=== PATIENT | male | born 1990 | race Caucasian/White ===

== ENCOUNTER 2016-11-21 09:19 | Emergency (ER) | payer BC, OTHER ==
[~2016-11-21] VITALS: Ht 180.3 cm; Wt 77.7 kg
[~2016-11-21 09:19] MED LIST: AMX500 PO; MULTTAB5 PO
[2016-11-21 09:38] VITALS: TEMP 37; Ht 180.3 cm; Wt 77.7 kg
[2016-11-21] MEDS ORDERED: OPTIRAY 320 IV PRN (10:30)
[2016-11-21 10:51] LABS: BASO % 0.7 %; BASO ABS # 0.03 K/uL (0-0.2); COMPLETE YES; EOS % 1.4 %; HEMATOCRIT 47.7 % (42-52); IG% 0.2 %; LYMPH ABS # 1.96 K/uL (1.2-3.4); MEAN CELL VOLUME 86.6 fL (80-100); MEAN CORPUSCULAR HGB CONC 33.5 g/dl (32-36); MEAN PLATELET VOLUME 9.5 fL (7.4-10.4); MONO % 6.7 %; PLATELET COUNT 252 K/uL (130-400); RED BLOOD COUNT 5.51 M/uL (4.7-6.1); WHITE BLOOD COUNT 4.36 K/uL (4.8-10.8)
[2016-11-21 11:15] LABS: ALT/SGPT 42 U/L (12-78); BLOOD UREA NITROGEN 10 mg/dl (7-18); BUN/CREATININE RATIO 11.5 (10-20); CALCIUM 9.3 mg/dl (8.5-10.1); CARBON DIOXIDE 30 mmol/L (21-32); CHLORIDE 104 mmol/L (98-107); CREATININE 0.84 mg/dl (0.60-1.40); GLUCOSE 92 mg/dl (70-99); POTASSIUM 3.7 mmol/L (3.5-5.1); SODIUM 141 mmol/L (136-145)
[2016-11-21 11:18] LABS: ALKALINE PHOSPHATASE 87 U/L (45-117); AST/SGOT 28 U/L (15-37)
[2016-11-21 11:53] LABS: URINE APPEARANCE CLEAR (CLEAR); URINE BILIRUBIN NEG (NEG); URINE COLOR YELLOW; URINE EPITHELIAL CELL AUTO 0-5 /lpf (0-5); URINE NITRITE NEG (NEG); UROBILINOGEN NEG (NEG); ZZUR CULT IF INDIC CLEAN CATCH NO
[2016-11-21 11:54] LABS: MANUAL MICROSCOPIC REQUIRED? NO; REVIEW REQ? NO
--- NOTE | 2016-11-21 12:06 | DIAGNOSTIC IMAGING REPORT ---
CT OF THE ABDOMEN AND PELVIS WITH CONTRAST CLINICAL HISTORY: Epigastric/periumbilical pain. COMPARISON STUDY: None. TECHNIQUE: Following IV administration of 119 mL of Optiray-320, axial images of the abdomen and pelvis were obtained from the lung bases to the proximal femurs. Images were reviewed in the axial, sagittal, and coronal planes. IV contrast was administered without complication. CT DOSE: 567.71 mGycm FINDINGS: Lung bases are clear. The liver, spleen, adrenal glands, kidneys and pancreas are unremarkable. There is no peripancreatic or pericholecystic infiltration. There is no hydronephrosis. No biliary or pancreatic ductal dilatation is present. The caliber and wall thickness of small and large bowel are normal. The appendix is normal. There is no free fluid. There is no abscess or lymphadenopathy. There is a small fat-containing umbilical hernia. IMPRESSION: 1. No acute process within the abdomen or pelvis. Normal appendix. 2. Small fat-containing umbilical hernia. Electronically signed by: Jatinder Kumari M.D. 11/21/2016 12:04 PM Dictated Date/Time: 11/21/2016 11:54 AM
[2016-11-21 13:12] VITALS: BP 124/70; PULSE 71; O2SAT 99
--- NOTE | 2016-11-21 17:10 | EMERGENCY ROOM VISIT NOTE ---
History Report prepared by Santoibkamari: Reji Helm Under the Supervision of: Dr. Matteo Simental D.O. 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 pt denies any pain at this time. History of Present Illness The patient is a 26 year old male who presents to the Emergency Room with complaints of a persistently enlarged belly button that started last night. The patient has had mild abdominal discomfort for several days. He denies any discomfort or swelling of the groin or testicles. The patient notes that he has been doing heavy lifting at his job. The patient has never had a problems like this before. His last bowel movement was yesterday. The patient would like to role out hernia or infection. Patient denies headache, change in vision, fevers , chest pain, shortness of breath, nausea, vomiting, diarrhea, pain with urination, and melena. Source of History: patient Onset: last night Position: other (belly button) Quality: other (enlarged) Timing: other (persistent) Associated Symptoms: + abdominal pain, No SOB, No chest pain, No diarrhea, No fevers, No headache, No melena, No nausea, No urinary symptoms, No vomiting Review of Systems See HPI for pertinent positives & negatives. A total of 10 systems reviewed and were otherwise negative. Past Medical & Surgical Medical Problems: (1) Acute bronchitis (2) Anxiety State Nos (3) Asthma (4) Contact dermatitis (5) Paranoid State Nos (6) Pharyngitis (7) URI (upper respiratory infection) Family History Diabetes mellitus FATHER FH: aneurysm FATHER Social History Smoking Status: Never Smoker Alcohol Use: occasionally Marital Status: single Housing Status: unknown Occupation Status: employed Current/Historical Medications No Active Prescriptions or Reported Meds Allergies Coded Allergies: No Known Allergies (Verified , 11/21/16) Physical Exam Vital Signs Date Time Temp Pulse Resp B/P Pulse Ox O2 Delivery O2 Flow Rate FiO2 11/21/16 13:12 71 16 124/70 99 11/21/16 12:28 69 18 125/72 97 Room Air 11/21/16 09:38 37.0 95 18 121/77 99 Room Air Physical Exam GENERAL: Sitting up in bed, alert, well appearing, well nourished, no distress, non-toxic EYE EXAM: normal conjunctiva. OROPHARYNX: no exudate, no erythema, lips, buccal mucosa, and tongue normal and mucous membranes are moist NECK: supple, no nuchal rigidity, no adenopathy, non-tender LUNGS: Clear to auscultation. Normal chest wall mechanics HEART: no murmurs, S1 normal and S2 normal ABDOMEN: abdomen soft, non-tender, normo-active bowel sounds, no masses, no rebound or guarding. small mass reducible in the umbilicus, no tenderness or surrounding erythema. : Normal external testicles, no penile discharge, no appreciable hernias. BACK: Back is symmetrical on inspection and there is no deformity, no midline tenderness, no CVA tenderness. SKIN: no rashes and no bruising UPPER EXTREMITIES: upper extremities are grossly normal. LOWER EXTREMITIES: No pitting edema. NEURO EXAM: Normal sensorium, cranial nerves II-XII grossly intact, normal speech, no gross weakness of arms, no gross weakness of legs. Gross sensation intact. Medical Decision & Procedures ER Provider Diagnostic Interpretation: CT:Per my review, radiologist interpretation. CT OF THE ABDOMEN AND PELVIS WITH CONTRAST CLINICAL HISTORY: Epigastric/periumbilical pain. COMPARISON STUDY: None. TECHNIQUE: Following IV administration of 119 mL of Optiray-320, axial images of the abdomen and pelvis were obtained from the lung bases to the proximal femurs. Images were reviewed in the axial, sagittal, and coronal planes. IV contrast was administered without complication. CT DOSE: 567.71 mGycm FINDINGS: Lung bases are clear. The liver, spleen, adrenal glands, kidneys and pancreas are unremarkable. There is no peripancreatic or pericholecystic infiltration. There is no hydronephrosis. No biliary or pancreatic ductal dilatation is present. The caliber and wall thickness of small and large bowel are normal. The appendix is normal. There is no free fluid. There is no abscess or lymphadenopathy. There is a small fat-containing umbilical hernia. IMPRESSION: 1. No acute process within the abdomen or pelvis. Normal appendix. 2. Small fat-containing umbilical hernia. Electronically signed by: Jatinder Kumari M.D. 11/21/2016 12:04 PM Dictated Date/Time: 11/21/2016 11:54 AM Laboratory Results 11/21/16 10:35 Red Blood Count 5.51, Mean Corpuscular Volume 86.6, Mean Corpuscular Hemoglobin 29.0, Mean Corpuscular Hemoglobin Concent 33.5, Mean Platelet Volume 9.5, Neutrophils (%) (Auto) 46.0, Lymphocytes (%) (Auto) 45.0, Monocytes (%) (Auto) 6.7, Eosinophils (%) (Auto) 1.4, Basophils (%) (Auto) 0.7, Neutrophils # (Auto) 2.01, Lymphocytes # (Auto) 1.96, Monocytes # (Auto) 0.29, Eosinophils # (Auto) 0.06, Basophils # (Auto) 0.03 11/21/16 10:35 Test 11/21/16 10:35 White Blood Count 4.36 K/uL (4.8-10.8) Red Blood Count 5.51 M/uL (4.7-6.1) Hemoglobin 16.0 g/dL (14.0-18.0) Hematocrit 47.7 % (42-52) Mean Corpuscular Volume 86.6 fL (80-100) Mean Corpuscular Hemoglobin 29.0 pg (25-34) Mean Corpuscular Hemoglobin Concent 33.5 g/dl (32-36) Platelet Count 252 K/uL (130-400) Mean Platelet Volume 9.5 fL (7.4-10.4) Neutrophils (%) (Auto) 46.0 % Lymphocytes (%) (Auto) 45.0 % Monocytes (%) (Auto) 6.7 % Eosinophils (%) (Auto) 1.4 % Basophils (%) (Auto) 0.7 % Neutrophils # (Auto) 2.01 K/uL (1.4-6.5) Lymphocytes # (Auto) 1.96 K/uL (1.2-3.4) Monocytes # (Auto) 0.29 K/uL (0.11-0.59) Eosinophils # (Auto) 0.06 K/uL (0-0.5) Basophils # (Auto) 0.03 K/uL (0-0.2) RDW Standard Deviation 40.1 fL (36.4-46.3) RDW Coefficient of Variation 12.6 % (11.5-14.5) Immature Granulocyte % (Auto) 0.2 % Immature Granulocyte # (Auto) 0.01 K/uL (0.00-0.02) Urine Color YELLOW Urine Appearance CLEAR (CLEAR) Urine pH 7.0 (4.5-7.5) Urine Specific [place] 1.020 (1.000-1.030) Urine Protein NEG (NEG) Urine Glucose (UA) NEG (NEG) Urine Ketones NEG (NEG) Urine Occult Blood NEG (NEG) Urine Nitrite NEG (NEG) Urine Bilirubin NEG (NEG) Urine Urobilinogen NEG (NEG) Urine Leukocyte Esterase NEG (NEG) Urine WBC (Auto) 0 /hpf (0-5) Urine RBC (Auto) 0-4 /hpf (0-4) Urine Hyaline Casts (Auto) 0 /lpf (0-5) Urine Epithelial Cells (Auto) 0-5 /lpf (0-5) Urine Bacteria (Auto) NEG (NEG) Anion Gap 7.0 mmol/L (3-11) Est Creatinine Clear Calc Drug Dose 139.4 ml/min Estimated GFR () 138.1 Estimated GFR (Non- 119.2 BUN/Creatinine Ratio 11.5 (10-20) Calcium Level 9.3 mg/dl (8.5-10.1) Total Bilirubin 0.6 mg/dl (0.2-1) Direct Bilirubin < 0.1 mg/dl (0-0.2) Aspartate Amino Transf (AST/SGOT) 28 U/L (15-37) Alanine Aminotransferase (ALT/SGPT) 42 U/L (12-78) Alkaline Phosphatase 87 U/L (45-117) Total Protein 8.5 gm/dl (6.4-8.2) Albumin 4.6 gm/dl (3.4-5.0) Lipase 116 U/L (73-393) Laboratory results per my review. ED Course ED COURSE: Vital signs were reviewed and wre normal The patients medical record was reviewed The above diagnostic studies were performed and reviewed. ED treatments and interventions as stated above. 1015: The patient was evaluated in room B12b. A complete history and physical examination was performed. 1230: Upon reevaluation, the patient is ready for discharge.I discussed my findings with the patient and he understands and agrees with the treatment plan. Based on the patients age, coexisting illnesses, exam and lab findings the decision to treat as an outpatient was made. The patient remained stable while under my care. The patient appeared well at the time of discharge. Medical Decision Differential diagnoses includes but is not limited to gastritis, peptic ulcer disease, GERD, gallbladder disease, pancreatitis, small bowel obstruction, acute coronary syndrome, pericarditis, ischemic bowel, irritable bowel disease, irritable bowel syndrome, appendicitis, diverticulitis, malignancy, hernia, urinary tract infection, torsion, , perforation, trauma, infectious. Patient is a 18-year-old male who presents the ER for periumbilical abdominal pain. He notes that this has resolved. CBC along with BMP, LFTs, bilirubin, lipase and UA was unremarkable. On exam patient has periumbilical reducible hernia. There is no surrounding erythema or induration. CT of the abdomen and pelvis shows a small fat-containing umbilical hernia. Patient was updated at bedside and was discharged follow-up with general surgery as an outpatient. Discussed with Pt concerning signs and symptoms to watch out for. Pt was instructed to follow up with their PCP and discussed with the patient their option to return to the ED at anytime for persistent or worsening symptoms. The appropriate anticipatory guidance and out-patient management, including indications for return to the emergency department, were explained at length to the patient and understood. Impression Primary Impression: Umbilical hernia Scribe Attestation The scribe's documentation has been prepared under my direction and personally reviewed by me in its entirety. I confirm that the note above accurately reflects all work, treatment, procedures, and medical decision making performed by me. Departure Information Dispostion Home / Self-Care Prescriptions No Active Prescriptions or Reported Meds Referrals No Doctor, Assigned (PCP) Forms HOME CARE DOCUMENTATION FORM, IMPORTANT VISIT INFORMATION Patient Instructions Hernia, Hernia How Develops, My [facility] Additional Instructions Please follow up with your primary care doctor with in the next 24 hours. Any worsening of your symptoms, please return to the ED immediately. This includes fevers grade and 100.4, unable to have a bowel movement/passing gas, blood in her stool, abdominal pain, or any other concerning signs or symptoms from your standpoint. You were found to have a small umbilical fat-containing hernia. Please follow- up with general surgery has listed below within the next week. Please refrain from any heavy lifting. Problem Qualifiers Primary Impression: Umbilical hernia Obstruction and gangrene presence: without obstruction or gangrene Qualified Codes: K42.9 - Umbilical hernia without obstruction or gangrene
== END 2016-11-21 13:13 | disposition home or self-care (01) ==
LOC: C.EDB 09:20
DX: K42.9 Umbilical hernia without obstruction or gangrene (principal); F41.9 Anxiety disorder, unspecified; J45.909 Unspecified asthma, uncomplicated; Z86.19 Personal history of other infectious and parasitic diseases; Z83.3 Family history of diabetes mellitus

== ENCOUNTER 2017-02-18 17:58 | Emergency (ER) | payer OTHER ==
[~2017-02-18] VITALS: Ht 180.3 cm; Wt 80.1 kg
[2017-02-18 18:15] VITALS: BP 118/75; PULSE 94; TEMP 37.1; O2SAT 98; Ht 180.3 cm; Wt 80.1 kg
== END 2017-02-18 18:40 | disposition left against medical advice (07) ==
LOC: C.EDB 17:59 → C.EDA 18:40
DX: R00.0 Tachycardia, unspecified (principal)

== ENCOUNTER 2017-07-20 21:52 | Emergency (ER) | payer OTHER ==
[~2017-07-20] VITALS: Ht 180.3 cm; Wt 78.1 kg
[2017-07-20 21:57] VITALS: TEMP 37.1; Ht 180.3 cm; Wt 78.1 kg
[2017-07-20 23:05] LABS: HEMATOCRIT 43.4 % (42-52); MEAN CELL VOLUME 87.7 fL (80-100); MEAN CORPUSCULAR HEMOGLOBIN 30.1 pg (25-34); MEAN CORPUSCULAR HGB CONC 34.3 g/dl (32-36); MEAN PLATELET VOLUME 9.1 fL (7.4-10.4); PLATELET COUNT 227 K/uL (130-400); RED BLOOD COUNT 4.95 M/uL (4.7-6.1); WHITE BLOOD COUNT 5.33 K/uL (4.8-10.8)
[2017-07-20 23:35] LABS: ALT/SGPT 26 U/L (12-78); BLOOD UREA NITROGEN 13 mg/dl (7-18); BUN/CREATININE RATIO 14.8 (10-20); CALCIUM 8.8 mg/dl (8.5-10.1); CARBON DIOXIDE 29 mmol/L (21-32); CHLORIDE 102 mmol/L (98-107); CREATININE 0.88 mg/dl (0.60-1.40); GLUCOSE 88 mg/dl (70-99); POTASSIUM 3.4 mmol/L (3.5-5.1); SODIUM 138 mmol/L (136-145)
[2017-07-20 23:38] LABS: ALKALINE PHOSPHATASE 80 U/L (45-117); AST/SGOT 16 U/L (15-37)
[2017-07-21] LABS: COMPLETE YES; EOSINOPHIL % 2.7 %; LYMPH ABS # 2.03 K/uL (1.2-3.4); LYMPHOCYTE % 38.1 %; NEUTROPHILS % 32.7 %; VARIANT LYM ABS # 1.18 K/uL; VARIANT LYMPHOCYTE % 22.1 %
[2017-07-21] MEDS ORDERED: ONDANSETRON HOME PACK 4MG OD TAB PO ONE (00:45)
[2017-07-21] MEDS ORDERED: HIV POST EXPOSURE PROPHYLAXIS KIT ONE (00:45)
[2017-07-21] MEDS ORDERED: RALT400T PO (00:53)
[2017-07-21] MEDS ORDERED: TRVHP PO (00:53)
[2017-07-21] MEDS ORDERED: ONDA4TAB10 SL (00:55)
[2017-07-21 01:06] VITALS: BP 121/58; PULSE 65; O2SAT 99
--- NOTE | 2017-07-21 03:19 | EMERGENCY ROOM VISIT NOTE ---
History First contact with patient: 22:09 Chief Complaint: STD MALE Stated Complaint: FATIGUE, BODY ACHES Nursing Triage Summary: Patient had sex with girlfriend whom he has been in a relationship with for 2 years. Condom broke while having sex and now because of her reaction to condom breaking and his questioning of her STD status, he is concerned that she may be lying about being "clean" Patient unsure if he wants STD testing but definitely wants prophylactic treatment. History of Present Illness The patient is a 27 year old male who presents to the Emergency Room with complaints of condom breaking last night during intercourse with his girlfriend. Patient was seen here for same complaint and refused care at that time. He comes in now requesting HIV prophylaxis. Patient states he's been in a monogamous relationship with his girlfriend for 2 years. He states when the condom broke he asked her if she had any STIs or HIV and started yelling at him. He got concerned and came to the ER immediately. No prior STI's per patient. Patient states he was tested in the past or HIV and this is negative. He denies any IV drug abuse. Patient states he's been in a monogamous relationship for the past 2 years always using protection. Patient states he is asymptomatic and is just concerned and is requesting prophylaxis for HIV. Patient states his girlfriend will not answer phone and does not know the status of her possibly having any infections. Patient denies chest pain, dyspnea, abdominal pain, night sweats, weight loss, penile discharge, penile pain, testicular pain, rashes. Review of Systems See HPI for pertinent positives & negatives. A total of 6 systems reviewed and were otherwise negative. Past Medical/Surgical History Medical Problems: (1) Acute bronchitis (2) Anxiety State Nos (3) Asthma (4) Contact dermatitis (5) Paranoid State Nos (6) Pharyngitis (7) URI (upper respiratory infection) Family History Diabetes mellitus FATHER FH: aneurysm FATHER Social History Smoking Status: Never Smoker Alcohol Use: occasionally Drug Use: none Marital Status: single Housing Status: unknown Occupation Status: employed Current/Historical Medications Scheduled Emtricitabine/Temofovir (Truvada 200/300MG), 1 TAB PO DAILY Ondasetron Odt (Zofran Odt), 4 MG SL Q6H Raltegravir Potassium (Isentress), 400 MG PO BID Physical Exam Vital Signs Date Time Temp Pulse Resp B/P (MAP) Pulse Ox O2 Delivery O2 Flow Rate FiO2 07/21/17 01:06 65 18 121/58 99 07/20/17 23:57 66 18 129/78 99 Room Air 07/20/17 21:57 37.1 72 18 119/82 99 Room Air Physical Exam VITALS: Vitals are noted on the nurse's note and reviewed by myself. Vital signs stable. GENERAL: Anxious-appearing male, in no acute distress, nondiaphoretic, well- developed well-nourished. SKIN: Capillary reflex less than 2 seconds. HEENT: Normocephalic. PERRLA. EOMI. Nares patent. Mucous membranes moist. Neck is supple without nuchal rigidity. HEART: Regular rate and rhythm without murmurs gallops or rubs. LUNGS: Clear to auscultation bilaterally without wheezes, rales or rhonchi. No retractions or accessory muscle use. ABDOMEN: Positive bowel sounds x 4. Normal tympanic percussion. Soft, nontender, without masses or organomegaly. Elias sign negative. No guarding or rebound tenderness. MUSCULOSKELETAL: No gross musculoskeletal defects. NEURO: Patient was alert and oriented to person place and time. No focal neurological deficits. Medical Decision & Procedures Laboratory Results 07/20/17 22:36 Red Blood Count 4.95, Mean Corpuscular Volume 87.7, Mean Corpuscular Hemoglobin 30.1, Mean Corpuscular Hemoglobin Concent 34.3, Mean Platelet Volume 9.1 07/20/17 22:36 Test 07/20/17 22:30 07/20/17 22:36 White Blood Count 5.33 K/uL (4.8-10.8) Red Blood Count 4.95 M/uL (4.7-6.1) Hemoglobin 14.9 g/dL (14.0-18.0) Hematocrit 43.4 % (42-52) Mean Corpuscular Volume 87.7 fL (80-100) Mean Corpuscular Hemoglobin 30.1 pg (25-34) Mean Corpuscular Hemoglobin Concent 34.3 g/dl (32-36) Platelet Count 227 K/uL (130-400) Mean Platelet Volume 9.1 fL (7.4-10.4) RDW Standard Deviation 40.3 fL (36.4-46.3) RDW Coefficient of Variation 12.6 % (11.5-14.5) Neutrophils % (Manual) 32.7 % Lymphocytes % (Manual) 38.1 % Variant Lymphocytes % (manual) 22.1 % Monocytes % (Manual) 4.4 % Eosinophils % (Manual) 2.7 % Neutrophils # (Manual) 1.74 K/uL (1.4-6.5) Total Absolute Neutrophils 1.74 K/uL (1.4-6.5) Lymphocytes # (Manual) 2.03 K/uL (1.2-3.4) Absolute Variant Lymphocytes 1.18 K/uL Total Absolute Lymphocytes 3.21 K/uL (1.2-3.4) Monocytes # (Manual) 0.23 K/uL (0.11-0.59) Eosinophils # (Manual) 0.14 K/uL (0-0.5) Red Blood Cell Morphology Unremarkable Anion Gap 7.0 mmol/L (3-11) Est Creatinine Clear Calc Drug Dose 131.9 ml/min Estimated GFR () 134.5 Estimated GFR (Non- 116.1 BUN/Creatinine Ratio 14.8 (10-20) Calcium Level 8.8 mg/dl (8.5-10.1) Total Bilirubin 0.4 mg/dl (0.2-1) Direct Bilirubin < 0.1 mg/dl (0-0.2) Aspartate Amino Transf (AST/SGOT) 16 U/L (15-37) Alanine Aminotransferase (ALT/SGPT) 26 U/L (12-78) Alkaline Phosphatase 80 U/L (45-117) Total Protein 7.9 gm/dl (6.4-8.2) Albumin 4.4 gm/dl (3.4-5.0) Hepatitis B Surface Antigen NEG (NEG) Hepatitis C Antibody NEG (NEG) HIV (1&2) Ab and P24 Ag, 4th Gener NEG (NEG) Medications Administered Medications (Trade) Dose Ordered Sig/Yadira Route Start Time Stop Time Status Last Admin Dose Admin Miscellaneous (Hiv Post Exposure Prophylaxis Kit) 1 ea NOW ONCE N/A 07/21/17 00:45 07/21/17 00:46 DC 07/21/17 00:56 1 EA Ondansetron HCl (ZOFRAN ODT 4MG Home Pack) 1 homepack UD ONCE PO 07/21/17 00:45 07/21/17 00:46 DC 07/21/17 00:55 1 HOMEPACK ED Course Prior records reviewed and summarized as above. Triage Nursing notes reviewed. The patient's history was concerning for condom breaking. Differential diagnosis: Etiologies such as STI, HIV, infection, as well as others were entertained.. Physical examination: As above ER treatment provided: HIV starter pack On reassessment the patient felt better. Diagnostics interpreted by me: The labs revealed modalities. Negative HIV. Negative hepatitis GC chlamydia pending This appears to be condom breaking with concerns for low risk HIV exposure. Patient is adamant that he wants HIV prophylaxis. He was informed that this is a low-risk exposure and to have his girlfriend get tested. He was informed of the side effects of the HIV prophylaxis medications. He understands this. He was given Zofran for nausea. His baseline LFTs are normal. He is advised follow-up family care in a week for reevaluation or here in the ER sooner for abdominal pain, fevers, jaundice, worsening signs or symptoms or as needed. He was informed that he will need repeat HIV testing for the next year for this possible exposure. The pt informed about the findings as listed above. All questions were answered and pleased with the treatment. Return instructions were outlined and the patient was discharged in stable condition. Outpatient prescription management: Andra Soto Referral: The patient was referred back to primary care physician for follow-up in 2 to 3 days for a recheck of the current condition. case reviewed with my Attending Medical Decision As above Medication Reconcilliation Current Medication List: was personally reviewed by me Blood Pressure Screening Patient's blood pressure: Normal blood pressure Impression Primary Impression: Possible exposure to STD Additional Impressions: broken condom prophylaxis for possible HIV exposure Departure Information Dispostion Home / Self-Care Condition GOOD Prescriptions Ondasetron Odt (ZOFRAN ODT) 4 Mg Tab 4 MG SL Q6H, #15 TAB Prov: Mara Graf PA-C 07/21/17 Raltegravir Potassium (ISENTRESS) 400 Mg Tab 400 MG PO BID for 28 Days, #56 TAB Prov: Mara Graf PA-C 07/21/17 Emtricitabine/Temofovir (Truvada 200/300MG) Tab 1 TAB PO DAILY for 28 Days, #28 TAB Prov: Mara Graf .MARIKA 07/21/17 Forms WORK / SCHOOL INSTRUCTIONS, HOME CARE DOCUMENTATION FORM, IMPORTANT VISIT INFORMATION Patient Instructions STDs, My [facility] Additional Instructions [id number]/300m tablet daily for 28 days.Any medication can cause an allergic reaction, stop the pills immediately and return to the ER for rash, hives, breathing difficulties, or swelling. Isentress 400m tablet twice a 28 days. Any medication can cause an allergic reaction, stop the pills immediately and return to the ER for rash, hives, breathing difficulties, or swelling. These medications can make you nauseous. You can take Zofran for nausea. Zofran 4 m tablet every 6 hours as needed for nausea and vomiting. Have your partner get checked for sexually transmitted infections and HIV and hepatitis. Follow-up with family care in one week for recheck. Return to ER sooner for chest pain, difficulty breathing, turning yellow, worsening signs or symptoms or as needed. You can call the ER in 3 days for your culture results. Problem Qualifiers
[2017-07-23 01:46] LABS: CHLAMYDIA TRACH RNA*** NOT DETECTED (NOT DETECTED); GC (NEIS GONORRHOEAE)RNA** NOT DETECTED (NOT DETECTED)
== END 2017-07-21 01:09 | disposition home or self-care (01) ==
LOC: C.EDB 21:54 → C.EDC 07-21 01:09
DX: Z20.2 Contact with and (suspected) exposure to infections with a predominantly sexual mode of transmission (principal); F41.9 Anxiety disorder, unspecified; J45.909 Unspecified asthma, uncomplicated; F22 Delusional disorders; Z83.3 Family history of diabetes mellitus

== ENCOUNTER 2017-09-03 15:25 | Emergency (ER) | payer OTHER ==
[~2017-09-03] VITALS: Ht 177.8 cm; Wt 80.8 kg
[~2017-09-03 15:25] MED LIST changes: -AMX500 PO; -MULTTAB5 PO; +ONDA4TAB10 SL
[2017-09-03 15:29] VITALS: TEMP 37; Ht 177.8 cm; Wt 80.8 kg
--- NOTE | 2017-09-03 16:14 | EMERGENCY ROOM VISIT NOTE ---
History First contact with patient: 15:34 Chief Complaint: PAIN (GENERALIZED) Stated Complaint: JOINT,MUSCLE, BONE PAIN History of Present Illness The patient is a 27 year old male who presents to the Emergency Room with complaints of shoulder pain He recently came to the ED (07/21) for possible exposure to HIV and subsequent prophylaxis with Truvada and Isentress. Since this period, patient reports shoulder and leg pain and feet swelling. He reports stopping the medicine 2 weeks ago. Upon stopping the medicine, the patient says that the pain in his legs and feet got better. Today his concerns are regarding his shoulder pain and the possibility of being infected with HIV. Patient denies fever, N/V/D. Patient denies unprotected in the interim since previous ED visit. He denies penile lesion or discharge. He denies redness and swelling of his joints. Review of Systems see below Constitutional: No fever, No chills, No sweats Respiratory: No cough, No sputum, No wheezing, No shortness of breath, No dyspnea on exertion, No dyspnea at rest Cardiovascular: No chest pain, No orthopnea, No palpitations Abdomen: No pain, No nausea, No vomiting, No diarrhea, No constipation Musculoskeletal: + joint pain, + muscle pain, No swelling, No calf pain Past Medical/Surgical History Medical Problems: (1) Acute bronchitis (2) Anxiety State Nos (3) Asthma (4) Contact dermatitis (5) Paranoid State Nos (6) Pharyngitis (7) URI (upper respiratory infection) Family History Diabetes mellitus FATHER FH: aneurysm FATHER Social History Smoking Status: Never Smoker Alcohol Use: occasionally Drug Use: none Marital Status: single Housing Status: unknown Occupation Status: employed Current/Historical Medications Scheduled Ondasetron Odt (Zofran Odt), 4 MG SL Q6H Physical Exam Vital Signs Date Time Temp Pulse Resp B/P (MAP) Pulse Ox O2 Delivery O2 Flow Rate FiO2 09/03/17 16:58 75 16 123/70 100 Room Air 09/03/17 15:29 37.0 87 16 135/81 95 Room Air Physical Exam see below General Appearance: WD/WN, no apparent distress Respiratory/Chest: chest non-tender, lungs clear, normal breath sounds, no respiratory distress, no accessory muscle use Cardiovascular: regular rate, rhythm, no edema, no gallop, no JVD, no murmur Back: + paravertebral tenderness (mid thoracic ) Neurologic/Psych: alert, oriented x 3, + pertinent finding (anxious pressured speech) Medical Decision & Procedures Laboratory Results Test 09/03/17 16:40 HIV (1&2) Ab and P24 Ag, 4th Gener NEG (NEG) ED Course 1600 History and physical performed 1615 Ordered labs 1630 Medical Decision 27 yo male comes into the ED with complaint of joint after being on Truvada, Isentress Patient is anxious and concerned that his joint pains are related to the medicine. He is also concerned that the The patient's musculoskeletal exam was unremarkable for swelling, warmth or deformity. He has moderate left paraspinal tenderness. Ordered 4th Generation HIV testing which was negative. 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 Patient says that he spends 14 hours per day on his computer at work. Advised the patient to follow up with his PCP. Impression Primary Impression: Shoulder pain, bilateral Departure Information Dispostion Home / Self-Care Condition GOOD Referrals No Doctor, Assigned (PCP) Patient Instructions My [facility] Additional Instructions Mr. Rincon, You came in today with shoulder pain and concerns regarding potential HIV infection. Exams and test in the ED were determined to be normal. For shoulder pain you can use the following; Ibuprofen(Motrin, Advil) may be used for fever or pain. Use 600mg every six hours as needed. Take with food. Avoid using more than 2400mg in a 24 hour period. Do not use 2400mg per day for more than three consecutive days without physician direction. Prolonged inappropriate use can lead to stomach upset or ulcers. This is available over the counter and typically comes in 200mg tablets. Acetaminophen(Tylenol) may be used for fever or pain. Use 1000mg every eight hours as needed. Avoid using more than 3000mg in a 24 hour period. This is available over the counter. Read all the package inserts or medication information paperwork provided. If you have any questions or concerns call your primary provider, pharmacist or the ER for assistance. Rest and avoid heavy lifting until your symptoms resolve and then gradually return to full activity. A good rule of thumb is if it hurts your back to perform a certain activity, then it should be avoided until you are healthy again. A heating pad, warm compresses, or a hot shower may help with tight muscles and can be done several times a day as needed. Continue current medications. Return to the ER immediately for any numbness, tingling, severe pain, loss of control of your bowels or bladder, inability to walk, or as needed. Follow up with your primary care physician within 3-5 days for a recheck of your current condition
[2017-09-03 16:58] VITALS: BP 123/70; PULSE 75; O2SAT 100
== END 2017-09-03 18:32 | disposition home or self-care (01) ==
LOC: C.EDB 15:27 → C.EDA 18:32
DX: M25.511 Pain in right shoulder (principal); M25.512 Pain in left shoulder; F41.9 Anxiety disorder, unspecified; J45.909 Unspecified asthma, uncomplicated; Z83.3 Family history of diabetes mellitus